=== PATIENT | female | born 1955 ===

== ENCOUNTER 2021-07-04 15:22 | Emergency (ER) | payer MEDICARE | END 2021-07-04 18:20 | disposition home or self-care (01) | LOC: LB.ED 15:22 | DX: K29.70 Gastritis, unspecified, without bleeding (principal) | CPT/HCPCS: 36415; 74176; 80053; 81001; 82150; 83690; 85025; 99282; 99284-25 ==

== ENCOUNTER 2022-09-04 10:44 | Emergency (ER) | payer MEDICARE ==
[2022-09-04] MEDS ORDERED: Sodium Chloride 0.9% 1,000 ML IV ONE (11:11)
[2022-09-04] MEDS ORDERED: cefTRIAXone 1 GM in Sodium Chloride 0.9% 50 ML IV ONE (11:13)
[2022-09-04 11:28] LABS: BASOPHILS ABSOLUTE AUTO 0.04 K/uL (0.02-0.10); BASOPHILS PERCENT AUTO 0.2 % (0.0-0.5); EOSINOPHILS ABSOLUTE AUTO 0.01 K/uL (0.04-0.40); EOSINOPHILS PERCENT AUTO 0.1 % (1.0-5.0); HEMATOCRIT 45.3 % (37.0-47.0); HEMOGLOBIN 15.6 g/dL (11.5-16.5); LYMPHOCYTES PERCENT AUTO 3.1 % (20.0-40.0); MEAN CORPUSCULAR HEMOGLOBIN 32.2 pg (27.0-32.0); MEAN CORPUSCULAR HGB CONC 34.4 g/dL (31.0-35.0); MEAN CORPUSCULAR VOLUME 94 fL (76-96); MEAN PLATELET VOLUME 10.3 fL (6.0-10.0); MONOCYTES ABSOLUTE AUTO 1.19 K/uL (0.20-0.80); MONOCYTES PERCENT AUTO 6.1 % (3.0-10.0); NEUTROPHILS PERCENT AUTO 90.5 % (45.0-70.0); PLATELET COUNT,PLT 261 K/uL (150-500); RED BLOOD CELL COUNT 4.84 M/uL (3.80-5.80); RED CELL DISTRIBUTION WIDTH 13.8 % (11.0-16.0); WHITE BLOOD CELL COUNT,WBC 19.4 K/uL (4.0-11.0)
[2022-09-04] MEDS ORDERED: cefTRIAXone 1 GM Vial ONE (11:30)
[2022-09-04 11:58] LABS: A/G RATIO 0.5 (0.8-2.0); ALBUMIN 2.6 g/dL (3.4-5.0); ANION GAP 21.8 mmol/L (5.0-15.0); BILIRUBIN TOTAL 0.8 mg/dL (0.0-1.0); BUN/CREATININE RATIO 23.6 (6-25); CREATININE 1.06 mg/dL (0.55-1.02); EST CRCL DRUG DOSING (CG) 37.5 mL/min; POTASSIUM,K 3.8 mmol/L (3.5-5.1); PROTEIN TOTAL,TP 7.4 g/dL (6.4-8.2)
[2022-09-04 12:09] LABS: APPEARANCE,URINE CLEAR (CLEAR); BILIRUBIN,URINE SMALL (NEGATIVE); COLOR,URINE YELLOW; GLUCOSE,URINE 500 mg/dL (NEGATIVE); KETONES,URINE 80 mg/dL (NEGATIVE); LEUKOCYTE ESTERASE,URINE NEGATIVE (NEGATIVE); NITRITE,URINE NEGATIVE (NEGATIVE); OCCULT BLOOD,URINE TRACE-INTACT (NEGATIVE); PROTEIN,URINE 30 mg/dL (NEGATIVE); UROBILINOGEN,URINE 0.2 E.U./dL (0.2-1.0)
[2022-09-04 12:19] LABS: RBC,URINE NOT SEEN /HPF; SQUAMOUS EPITHELIAL CELLS,UR OCCASIONAL /HPF; WBC,URINE 0-5 /HPF
[2022-09-04] MEDS ORDERED: Cephalexin 500 MG Cap ONE (13:00)
[2022-09-04] MEDS ORDERED: Doxycycline 100 MG Cap ONE (13:00)
== END 2022-09-04 13:45 | disposition home or self-care (01) ==
LOC: LB.ED 10:44
DX: L03.116 Cellulitis of left lower limb (principal); I10 Essential (primary) hypertension; K21.9 Gastro-esophageal reflux disease without esophagitis; E11.9 Type 2 diabetes mellitus without complications; E05.90 Thyrotoxicosis, unspecified without thyrotoxic crisis or storm; E66.9 Obesity, unspecified; F17.210 Nicotine dependence, cigarettes, uncomplicated; Z68.22 Body mass index [BMI] 22.0-22.9, adult; Z88.5 Allergy status to narcotic agent; Z88.0 Allergy status to penicillin; Z88.8 Allergy status to other drugs, medicaments and biological substances; Z88.2 Allergy status to sulfonamides; Z79.899 Other long term (current) drug therapy
CPT/HCPCS: 36415; 80053; 81001; 83605; 85025; 96361; 96365; 99283; A9270; J0696; J3490; J7030

== ENCOUNTER 2022-09-06 19:59 | Inpatient (IN) | payer MEDICARE ==
[2022-09-06] MEDS ORDERED: Ondansetron 4 MG/2 ML SDV IVPUSH ONE (20:31)
[2022-09-06] MEDS ORDERED: Morphine 2 MG/ML SYRINGE IVPUSH ONE (20:32)
[2022-09-06] MEDS ORDERED: Ondansetron 4 MG/2 ML SDV ONE (20:41)
[2022-09-06] MEDS ORDERED: Morphine 2 MG/ML SYRINGE ONE (20:41)
[2022-09-06] MEDS: Sodium Chloride 0.9% 10 ML Syringe FLUSH PRN ×2 (20:58→21:00)
[2022-09-06 21:08] LABS: HEMATOCRIT 44.4 % (37.0-47.0); HEMOGLOBIN 15.8 g/dL (11.5-16.5); MEAN CORPUSCULAR HEMOGLOBIN 32.2 pg (27.0-32.0); MEAN CORPUSCULAR HGB CONC 35.6 g/dL (31.0-35.0); MEAN PLATELET VOLUME 10.4 fL (6.0-10.0); RED BLOOD CELL COUNT 4.91 M/uL (3.80-5.80); RED CELL DISTRIBUTION WIDTH 13.7 % (11.0-16.0)
[2022-09-06 21:11] LABS: WHITE BLOOD CELL COUNT,WBC 20.3 K/uL (4.0-11.0)
[2022-09-06 21:18] LABS: ANION GAP 17.6 mmol/L (5.0-15.0); BUN/CREATININE RATIO 24.2 (6-25); CALCIUM 9.5 mg/dL (8.5-10.1); CARBON DIOXIDE,CO2 23.7 mmol/L (21.0-32.0); CREATININE 0.95 mg/dL (0.55-1.02); EST CRCL DRUG DOSING (CG) 46.07 mL/min; POTASSIUM,K 3.3 mmol/L (3.5-5.1)
[2022-09-06 21:19] LABS: C-REACTIVE PROTEIN 385.2 mg/L (0.0-3.0)
[2022-09-06] MEDS ORDERED: SEMAGLUTIDE 0.25 MG/0.4 ML SQ SCH (22:45)
[2022-09-06] MEDS: Cefepime 2 GM Vial IVPUSH SCH (23:42)
[2022-09-07] MEDS: Cefepime 2 GM Vial IVPUSH SCH ×3 (05:48→22:19)
[2022-09-07] MEDS: Ondansetron 4 MG/2 ML SDV IVPUSH PRN ×2 (06:28→12:46)
[2022-09-07] MEDS: Morphine 2 MG/ML SYRINGE IVPUSH PRN ×3 (06:30→21:52)
[2022-09-07 07:02] LABS: HEMATOCRIT 40.8 % (37.0-47.0); HEMOGLOBIN 14.5 g/dL (11.5-16.5); MEAN CORPUSCULAR HEMOGLOBIN 32.2 pg (27.0-32.0); MEAN CORPUSCULAR HGB CONC 35.5 g/dL (31.0-35.0); MEAN PLATELET VOLUME 9.9 fL (6.0-10.0); RED BLOOD CELL COUNT 4.5 M/uL (3.80-5.80); RED CELL DISTRIBUTION WIDTH 13.8 % (11.0-16.0)
[2022-09-07 07:12] LABS: WHITE BLOOD CELL COUNT,WBC 22.2 K/uL (4.0-11.0)
[2022-09-07] MEDS: Levothyroxine 100 MCG Tab PO SCH (07:12)
[2022-09-07 07:21] LABS: ANION GAP 20.1 mmol/L (5.0-15.0); BUN/CREATININE RATIO 29.3 (6-25); CARBON DIOXIDE,CO2 20.7 mmol/L (21.0-32.0); CREATININE 0.82 mg/dL (0.55-1.02); EST CRCL DRUG DOSING (CG) 53.37 mL/min; POTASSIUM,K 3.8 mmol/L (3.5-5.1)
[2022-09-07 07:22] LABS: C-REACTIVE PROTEIN 329.3 mg/L (0.0-3.0)
[2022-09-07] MEDS ORDERED: Lactated Ringers 1,000 ML IV SCH (07:45)
[2022-09-07] MEDS: Losartan 50 MG Tab PO SCH (08:09)
[2022-09-07] MEDS: Sertraline 100 MG Tab PO SCH (08:09)
[2022-09-07] MEDS: Omeprazole 20 MG Cap.CR PO SCH (08:10)
[2022-09-07] MEDS: Non-Formulary Medication 1 Each (Empagliflozin [Jardiance] 10 MG Tablet) PO SCH (08:13)
[2022-09-07] MEDS ORDERED: Omeprazole 20 MG Cap.CR ONE (08:13)
[2022-09-07] MEDS: SitaGLIPtin 25 MG Tab PO SCH (08:13)
[2022-09-07] MEDS: Lactated Ringers 1,000 ML IV SCH ×2 (10:35→11:05)
[2022-09-07 16:13] LABS: HEMATOCRIT 41.1 % (37.0-47.0); HEMOGLOBIN 14.6 g/dL (11.5-16.5); MEAN CORPUSCULAR HEMOGLOBIN 32.2 pg (27.0-32.0); MEAN CORPUSCULAR HGB CONC 35.5 g/dL (31.0-35.0); RED BLOOD CELL COUNT 4.54 M/uL (3.80-5.80)
[2022-09-07 16:15] LABS: WHITE BLOOD CELL COUNT,WBC 23.3 K/uL (4.0-11.0)
[2022-09-07] MEDS: cefTRIAXone 1 GM in Sodium Chloride 0.9% 50 ML IV SCH (17:59)
[2022-09-07] MEDS: Piperacillin/Tazobactam 3.375 GM in Sodium Chloride 0.9% 100 ML IV SCH ×2 (18:02→22:20)
[2022-09-08] MEDS: Piperacillin/Tazobactam 3.375 GM in Sodium Chloride 0.9% 100 ML IV SCH ×4 (04:40→22:20)
[2022-09-08] MEDS: cefTRIAXone 1 GM in Sodium Chloride 0.9% 50 ML IV SCH (04:44)
[2022-09-08] MEDS: Cefepime 2 GM Vial IVPUSH SCH ×2 (05:03→15:04)
[2022-09-08] MEDS: Morphine 2 MG/ML SYRINGE IVPUSH PRN (05:36)
[2022-09-08] MEDS: Sodium Chloride 0.9% 1,000 ML IV SCH ×2 (07:31→22:18)
[2022-09-08] MEDS: Sertraline 100 MG Tab PO SCH (07:41)
[2022-09-08] MEDS: Losartan 50 MG Tab PO SCH (07:41)
[2022-09-08] MEDS: Levothyroxine 100 MCG Tab PO SCH (07:41)
[2022-09-08] MEDS: Omeprazole 20 MG Cap.CR PO SCH (07:42)
[2022-09-08 08:25] LABS: HEMATOCRIT 39.4 % (37.0-47.0); HEMOGLOBIN 13.9 g/dL (11.5-16.5); MEAN CORPUSCULAR HEMOGLOBIN 32.2 pg (27.0-32.0); MEAN CORPUSCULAR HGB CONC 35.3 g/dL (31.0-35.0); MEAN PLATELET VOLUME 10.3 fL (6.0-10.0); RED BLOOD CELL COUNT 4.32 M/uL (3.80-5.80); RED CELL DISTRIBUTION WIDTH 13.8 % (11.0-16.0)
[2022-09-08] MEDS: SitaGLIPtin 25 MG Tab PO SCH (09:56)
[2022-09-08] MEDS: Non-Formulary Medication 1 Each (Empagliflozin [Jardiance] 10 MG Tablet) PO SCH (09:56)
[2022-09-08] MEDS: Lactobacillus Acidophilus/Lactobacillus Sporogenes (Probiotic) Tab PO SCH ×2 (12:44→19:24)
[2022-09-08] MEDS ORDERED: Morphine 4 MG/ML VIAL IVPUSH ONE ×2 (12:45→14:00)
[2022-09-08] MEDS: Ondansetron 4 MG/2 ML SDV IVPUSH PRN (12:47)
[2022-09-08] MEDS ORDERED: LORazepam 2 MG/ML SDV IVPUSH ONE (12:51)
[2022-09-09] MEDS: Piperacillin/Tazobactam 3.375 GM in Sodium Chloride 0.9% 100 ML IV SCH ×4 (04:42→23:12)
[2022-09-09 07:59] LABS: HEMATOCRIT 37.4 % (37.0-47.0); MEAN CORPUSCULAR HEMOGLOBIN 31.7 pg (27.0-32.0); MEAN CORPUSCULAR HGB CONC 34.8 g/dL (31.0-35.0); RED BLOOD CELL COUNT 4.1 M/uL (3.80-5.80); RED CELL DISTRIBUTION WIDTH 14.2 % (11.0-16.0)
[2022-09-09] MEDS: Sertraline 100 MG Tab PO SCH (08:06)
[2022-09-09] MEDS: Lactobacillus Acidophilus/Lactobacillus Sporogenes (Probiotic) Tab PO SCH ×2 (08:08→19:09)
[2022-09-09 08:09] LABS: WHITE BLOOD CELL COUNT,WBC 21.9 K/uL (4.0-11.0)
[2022-09-09] MEDS: Levothyroxine 100 MCG Tab PO SCH (08:09)
[2022-09-09] MEDS: Losartan 50 MG Tab PO SCH (08:09)
[2022-09-09] MEDS: Omeprazole 20 MG Cap.CR PO SCH (08:09)
[2022-09-09] MEDS: Non-Formulary Medication 1 Each (Empagliflozin [Jardiance] 10 MG Tablet) PO SCH (08:10)
[2022-09-09] MEDS: SitaGLIPtin 25 MG Tab PO SCH (08:11)
[2022-09-09] MEDS ORDERED: Bisacodyl 10 MG Supp RECTAL ONE (09:42)
[2022-09-09] MEDS ORDERED: Docusate Sodium 100 MG Cap PO SCH (09:45)
[2022-09-09] MEDS ORDERED: LORazepam 2 MG/ML SDV IVPUSH ONE (14:48)
[2022-09-09] MEDS ORDERED: Morphine 4 MG/ML VIAL IVPUSH ONE ×2 (14:48→17:28)
[2022-09-09] MEDS ORDERED: Morphine 4 MG/ML VIAL ONE (17:24)
[2022-09-09] MEDS ORDERED: fentaNYL 100 MCG/2 ML SDV ONE (17:33)
[2022-09-09] MEDS ORDERED: fentaNYL 100 MCG/2 ML SDV IVPUSH ONE ×2 (17:38→17:45)
[2022-09-09] MEDS: Sodium Chloride 0.9% 1,000 ML IV SCH (18:05)
[2022-09-09] MEDS: Polyethylene Glycol 3350 Powder 17 GM Packet PO SCH (19:09)
[2022-09-09] MEDS: Sennosides/Docusate Sodium 50-8.6 MG Tab PO SCH (19:10)
[2022-09-10] MEDS: Piperacillin/Tazobactam 3.375 GM in Sodium Chloride 0.9% 100 ML IV SCH ×3 (05:15→16:56)
[2022-09-10 07:37] LABS: HEMATOCRIT 39.1 % (37.0-47.0); HEMOGLOBIN 13.6 g/dL (11.5-16.5); MEAN CORPUSCULAR HGB CONC 34.8 g/dL (31.0-35.0); MEAN PLATELET VOLUME 10.2 fL (6.0-10.0); RED BLOOD CELL COUNT 4.25 M/uL (3.80-5.80); RED CELL DISTRIBUTION WIDTH 14.5 % (11.0-16.0)
[2022-09-10 07:40] LABS: WHITE BLOOD CELL COUNT,WBC 20.2 K/uL (4.0-11.0)
[2022-09-10] MEDS: Sertraline 100 MG Tab PO SCH (08:00)
[2022-09-10] MEDS: Levothyroxine 100 MCG Tab PO SCH (08:03)
[2022-09-10] MEDS: Lactobacillus Acidophilus/Lactobacillus Sporogenes (Probiotic) Tab PO SCH (08:03)
[2022-09-10] MEDS: Non-Formulary Medication 1 Each (Empagliflozin [Jardiance] 10 MG Tablet) PO SCH (08:04)
[2022-09-10] MEDS: Losartan 50 MG Tab PO SCH (08:04)
[2022-09-10] MEDS: Polyethylene Glycol 3350 Powder 17 GM Packet PO SCH (08:07)
[2022-09-10] MEDS: Omeprazole 20 MG Cap.CR PO SCH (08:07)
[2022-09-10] MEDS: Sennosides/Docusate Sodium 50-8.6 MG Tab PO SCH (08:08)
[2022-09-10] MEDS ORDERED: JANUVIA 100 MG PO SCH (08:45)
[2022-09-10 12:45] LABS: ANION GAP 18.4 mmol/L (5.0-15.0); CALCIUM 8.5 mg/dL (8.5-10.1); CARBON DIOXIDE,CO2 20.8 mmol/L (21.0-32.0); CREATININE 0.7 mg/dL (0.55-1.02); EST CRCL DRUG DOSING (CG) 62.53 mL/min; POTASSIUM,K 3.2 mmol/L (3.5-5.1)
[2022-09-10] MEDS ORDERED: LORazepam 2 MG/ML SDV IVPUSH ONE (13:06)
[2022-09-10] MEDS ORDERED: Morphine 4 MG/ML VIAL IVPUSH ONE (13:06)
[2022-09-10] MEDS: Ondansetron 4 MG/2 ML SDV IVPUSH PRN (13:20)
[2022-09-10] MEDS: fentaNYL 100 MCG/2 ML SDV IVPUSH ONE ×2 (13:20→14:47)
[2022-09-10] MEDS ORDERED: fentaNYL 100 MCG/2 ML SDV IM ONE (14:00)
[2022-09-10] MEDS: Sodium Chloride 0.9% 1,000 ML IV SCH (18:26)
[2022-09-10] MEDS: Morphine 2 MG/ML SYRINGE IVPUSH PRN (18:46)
[2022-09-11] MEDS ORDERED: Jardiance 10 MG Tablet **OWN MED PO SCH (08:00)
== END 2022-09-10 18:58 | DRG 603 ==
LOC: LB.ED 19:59 → LB.MS 22:15 → UNDOADMIN 22:15 → LB.MS 22:21
PROVIDERS: ADMIT Surgery; ATTEND Surgery
DX: L03.116 Cellulitis of left lower limb (principal); E11.9 Type 2 diabetes mellitus without complications; I10 Essential (primary) hypertension; G35 Multiple sclerosis; E66.9 Obesity, unspecified; K21.9 Gastro-esophageal reflux disease without esophagitis; F17.210 Nicotine dependence, cigarettes, uncomplicated; E78.00 Pure hypercholesterolemia, unspecified; F32.A Depression, unspecified; E03.9 Hypothyroidism, unspecified; Z96.649 Presence of unspecified artificial hip joint; Z88.5 Allergy status to narcotic agent; Z88.0 Allergy status to penicillin; Z88.2 Allergy status to sulfonamides; Z88.8 Allergy status to other drugs, medicaments and biological substances; Z79.890 Hormone replacement therapy; Z79.899 Other long term (current) drug therapy; Z98.890 Other specified postprocedural states; Z68.28 Body mass index [BMI] 28.0-28.9, adult
CPT/HCPCS: 36415; 73700; 80048; 83605; 85027; 86140; 87040; 96365; 96375; 99284; J2270; J2405; J3370; J3490 ×2; J7050; 80202; 82947; 86141; 87070; 99222; 99232; 99239; A0425; A0429; A9270-GY; J0692; J0696; J2060; J2543; J3010; J7030; J7120

== ENCOUNTER 2022-09-25 10:57 | Inpatient (IN) | payer MEDICARE ==
[2022-09-25] MEDS ORDERED: Glucagon,Human Recombinant 1 MG Vial IM PRN ×2 (12:57→13:01)
[2022-09-25] MEDS ORDERED: 50% Dextrose in Water 50 ML Syringe IVPUSH PRN ×2 (12:57→13:01)
[2022-09-25] MEDS ORDERED: Non-Formulary Medication 1 Each (Cholecalciferol (Vitamin D3) [Vitamin D3] 1,250 MCG Table PO SCH (13:00)
[2022-09-25] MEDS ORDERED: Ketorolac 10 MG Tab PO PRN (13:01)
[2022-09-25] MEDS ORDERED: Tuberculin, PPD 5 Units/0.1 ML 1 ML MDV IDERM ONE (17:43)
[2022-09-25] MEDS: Insulin Aspart 100 Units/ML 3 ML Pen SUBCUT SCH (17:48)
[2022-09-25] MEDS: Insulin Glargine,Human Rec. Analog 100 Units/ML 3 ML Pen SUBCUT SCH (20:24)
[2022-09-25] MEDS: traMADol 50 MG Tab PO PRN (21:30)
[2022-09-26] MEDS: Cholecalciferol (Vitamin D3) 2,000 Unit Cap PO SCH (07:36)
[2022-09-26] MEDS: Sertraline 50 MG Tab PO SCH (07:37)
[2022-09-26] MEDS: Levothyroxine 100 MCG Tab PO SCH (07:37)
[2022-09-26] MEDS: Rosuvastatin 20 MG Tab PO SCH (07:37)
[2022-09-26] MEDS: Losartan 50 MG Tab PO SCH (07:37)
[2022-09-26] MEDS: Omeprazole 20 MG Cap.CR PO SCH (07:37)
[2022-09-26] MEDS: Insulin Aspart 100 Units/ML 3 ML Pen SUBCUT SCH ×3 (07:55→17:14)
[2022-09-26] MEDS ORDERED: Sertraline 100 MG Tab PO SCH (08:00)
[2022-09-26] MEDS: Benztropine 0.5 MG Tab PO SCH ×2 (10:52→13:23)
[2022-09-26] MEDS ORDERED: Naloxone 2 MG/2 ML Syringe IVPUSH PRN (13:05)
[2022-09-26] MEDS ORDERED: HYDROmorphone 2 MG/ML Syringe IVPUSH PRN (13:05)
[2022-09-26] MEDS ORDERED: LORazepam 2 MG/ML SDV IVPUSH SCH (13:45)
[2022-09-26] MEDS: Insulin Glargine,Human Rec. Analog 100 Units/ML 3 ML Pen SUBCUT SCH (20:13)
[2022-09-26] MEDS: traMADol 50 MG Tab PO PRN (22:52)
[2022-09-27] MEDS: Levothyroxine 100 MCG Tab PO SCH (07:15)
[2022-09-27] MEDS: Losartan 50 MG Tab PO SCH (08:19)
[2022-09-27] MEDS: Benztropine 0.5 MG Tab PO SCH (08:19)
[2022-09-27] MEDS: Rosuvastatin 20 MG Tab PO SCH (08:19)
[2022-09-27] MEDS: Insulin Aspart 100 Units/ML 3 ML Pen SUBCUT SCH ×3 (08:20→17:44)
[2022-09-27] MEDS: Sertraline 50 MG Tab PO SCH (08:22)
[2022-09-27] MEDS: Cholecalciferol (Vitamin D3) 2,000 Unit Cap PO SCH (08:22)
[2022-09-27] MEDS: Omeprazole 20 MG Cap.CR PO SCH (08:22)
[2022-09-27] MEDS: traMADol 50 MG Tab PO PRN (18:52)
[2022-09-27] MEDS: Insulin Glargine,Human Rec. Analog 100 Units/ML 3 ML Pen SUBCUT SCH (20:20)
[2022-09-28] MEDS: Levothyroxine 100 MCG Tab PO SCH (07:43)
[2022-09-28] MEDS: Benztropine 0.5 MG Tab PO SCH (07:43)
[2022-09-28] MEDS: Losartan 50 MG Tab PO SCH (07:44)
[2022-09-28] MEDS: Rosuvastatin 20 MG Tab PO SCH (07:44)
[2022-09-28] MEDS: Sertraline 50 MG Tab PO SCH (07:45)
[2022-09-28] MEDS: Cholecalciferol (Vitamin D3) 2,000 Unit Cap PO SCH (07:45)
[2022-09-28] MEDS: Omeprazole 20 MG Cap.CR PO SCH (07:45)
[2022-09-28] MEDS: Insulin Aspart 100 Units/ML 3 ML Pen SUBCUT SCH ×3 (07:48→17:12)
[2022-09-28] MEDS: LORazepam 2 MG/ML SDV IM PRN (18:56)
[2022-09-28] MEDS: Insulin Glargine,Human Rec. Analog 100 Units/ML 3 ML Pen SUBCUT SCH (20:02)
[2022-09-29] MEDS: Levothyroxine 100 MCG Tab PO SCH (08:23)
[2022-09-29] MEDS: Cholecalciferol (Vitamin D3) 2,000 Unit Cap PO SCH (08:23)
[2022-09-29] MEDS: Rosuvastatin 20 MG Tab PO SCH (08:23)
[2022-09-29] MEDS: Sertraline 50 MG Tab PO SCH (08:23)
[2022-09-29] MEDS: Omeprazole 20 MG Cap.CR PO SCH (08:23)
[2022-09-29] MEDS: Benztropine 0.5 MG Tab PO SCH (08:25)
[2022-09-29] MEDS: Insulin Aspart 100 Units/ML 3 ML Pen SUBCUT SCH ×3 (08:29→17:22)
[2022-09-29] MEDS: Losartan 50 MG Tab PO SCH (08:29)
[2022-09-29] MEDS: LORazepam 2 MG/ML SDV IM PRN (12:39)
[2022-09-29] MEDS: HYDROmorphone 2 MG/ML Syringe SUBCUT PRN (12:56)
[2022-09-29] MEDS: fentaNYL 100 MCG/2 ML SDV IM PRN (13:20)
[2022-09-29] MEDS: Insulin Glargine,Human Rec. Analog 100 Units/ML 3 ML Pen SUBCUT SCH (19:47)
[2022-09-30] MEDS: Levothyroxine 100 MCG Tab PO SCH (07:15)
[2022-09-30] MEDS: Benztropine 0.5 MG Tab PO SCH (08:10)
[2022-09-30] MEDS: Losartan 50 MG Tab PO SCH (08:10)
[2022-09-30] MEDS: Cholecalciferol (Vitamin D3) 2,000 Unit Cap PO SCH (08:11)
[2022-09-30] MEDS: Omeprazole 20 MG Cap.CR PO SCH (08:11)
[2022-09-30] MEDS: Rosuvastatin 20 MG Tab PO SCH (08:11)
[2022-09-30] MEDS: Insulin Aspart 100 Units/ML 3 ML Pen SUBCUT SCH ×3 (08:11→16:59)
[2022-09-30] MEDS: Sertraline 50 MG Tab PO SCH (08:11)
[2022-09-30] MEDS: traMADol 50 MG Tab PO PRN (11:18)
[2022-09-30] MEDS: Insulin Glargine,Human Rec. Analog 100 Units/ML 3 ML Pen SUBCUT SCH (20:59)
[2022-10-01] MEDS: Levothyroxine 100 MCG Tab PO SCH (07:24)
[2022-10-01] MEDS: Losartan 50 MG Tab PO SCH (08:22)
[2022-10-01] MEDS: Benztropine 0.5 MG Tab PO SCH (08:22)
[2022-10-01] MEDS: Rosuvastatin 20 MG Tab PO SCH (08:23)
[2022-10-01] MEDS: Omeprazole 20 MG Cap.CR PO SCH (08:23)
[2022-10-01] MEDS: Insulin Aspart 100 Units/ML 3 ML Pen SUBCUT SCH ×3 (08:23→20:21)
[2022-10-01] MEDS: Cholecalciferol (Vitamin D3) 2,000 Unit Cap PO SCH (08:23)
[2022-10-01] MEDS: Sertraline 50 MG Tab PO SCH (08:23)
[2022-10-01] MEDS: HYDROmorphone 2 MG/ML Syringe SUBCUT PRN (10:10)
[2022-10-01] MEDS: LORazepam 2 MG/ML SDV IM PRN (10:10)
[2022-10-01 12:47] LABS: BASOPHILS ABSOLUTE AUTO 0.03 K/uL (0.02-0.10); BASOPHILS PERCENT AUTO 0.5 % (0.0-0.5); EOSINOPHILS ABSOLUTE AUTO 0.24 K/uL (0.04-0.40); EOSINOPHILS PERCENT AUTO 3.6 % (1.0-5.0); HEMATOCRIT 38.7 % (37.0-47.0); HEMOGLOBIN 12.7 g/dL (11.5-16.5); LYMPHOCYTES ABSOLUTE AUTO 1.74 K/uL (1.50-4.00); LYMPHOCYTES PERCENT AUTO 26.4 % (20.0-40.0); MEAN CORPUSCULAR HGB CONC 32.8 g/dL (31.0-35.0); MEAN CORPUSCULAR VOLUME 98 fL (76-96); MEAN PLATELET VOLUME 9.4 fL (6.0-10.0); MONOCYTES ABSOLUTE AUTO 0.43 K/uL (0.20-0.80); MONOCYTES PERCENT AUTO 6.5 % (3.0-10.0); NEUTROPHILS ABSOLUTE AUTO 4.14 K/uL (2.00-7.50); PLATELET COUNT,PLT 297 K/uL (150-500); RED BLOOD CELL COUNT 3.97 M/uL (3.80-5.80); RED CELL DISTRIBUTION WIDTH 15.8 % (11.0-16.0); WHITE BLOOD CELL COUNT,WBC 6.6 K/uL (4.0-11.0)
[2022-10-01 13:05] LABS: ALBUMIN 2.4 g/dL (3.4-5.0); ANION GAP 9.6 mmol/L (5.0-15.0); BILIRUBIN TOTAL 0.3 mg/dL (0.0-1.0); CALCIUM 8.5 mg/dL (8.5-10.1); CARBON DIOXIDE,CO2 32.3 mmol/L (21.0-32.0); CREATININE 0.61 mg/dL (0.55-1.02); EST CRCL DRUG DOSING (CG) 65.16 mL/min; POTASSIUM,K 3.9 mmol/L (3.5-5.1); PROTEIN TOTAL,TP 6.8 g/dL (6.4-8.2)
[2022-10-01 13:06] LABS: A/G RATIO 0.6 (0.8-2.0)
[2022-10-01] MEDS: Furosemide 20 MG Tab PO SCH (17:13)
[2022-10-01] MEDS: Insulin Glargine,Human Rec. Analog 100 Units/ML 3 ML Pen SUBCUT SCH (20:25)
[2022-10-02] MEDS: Furosemide 20 MG Tab PO SCH (07:33)
[2022-10-02] MEDS: Rosuvastatin 20 MG Tab PO SCH (07:33)
[2022-10-02] MEDS: Levothyroxine 100 MCG Tab PO SCH (07:33)
[2022-10-02] MEDS: Omeprazole 20 MG Cap.CR PO SCH (07:34)
[2022-10-02] MEDS: Benztropine 0.5 MG Tab PO SCH (07:35)
[2022-10-02] MEDS: Cholecalciferol (Vitamin D3) 2,000 Unit Cap PO SCH (07:35)
[2022-10-02] MEDS: Losartan 50 MG Tab PO SCH (07:35)
[2022-10-02] MEDS: Sertraline 50 MG Tab PO SCH (07:35)
[2022-10-02] MEDS: Insulin Aspart 100 Units/ML 3 ML Pen SUBCUT SCH ×3 (07:36→17:38)
[2022-10-02] MEDS: Insulin Glargine,Human Rec. Analog 100 Units/ML 3 ML Pen SUBCUT SCH (20:13)
[2022-10-02] MEDS: traMADol 50 MG Tab PO PRN (21:14)
[2022-10-02] MEDS: Docusate Sodium 100 MG Cap PO PRN (21:14)
[2022-10-03] MEDS: Furosemide 20 MG Tab PO SCH (07:41)
[2022-10-03] MEDS: Insulin Aspart 100 Units/ML 3 ML Pen SUBCUT SCH ×3 (07:41→17:06)
[2022-10-03] MEDS: Benztropine 0.5 MG Tab PO SCH (07:42)
[2022-10-03] MEDS: Sertraline 50 MG Tab PO SCH (07:42)
[2022-10-03] MEDS: Rosuvastatin 20 MG Tab PO SCH (07:43)
[2022-10-03] MEDS: Losartan 50 MG Tab PO SCH (07:43)
[2022-10-03] MEDS: Omeprazole 20 MG Cap.CR PO SCH (07:43)
[2022-10-03] MEDS: Levothyroxine 100 MCG Tab PO SCH (07:44)
[2022-10-03] MEDS: Cholecalciferol (Vitamin D3) 2,000 Unit Cap PO SCH (07:44)
[2022-10-03] MEDS: LORazepam 2 MG/ML SDV IM PRN (13:17)
[2022-10-03] MEDS: HYDROmorphone 2 MG/ML Syringe SUBCUT PRN (13:18)
[2022-10-03] MEDS: Insulin Glargine,Human Rec. Analog 100 Units/ML 3 ML Pen SUBCUT SCH (19:18)
[2022-10-04] MEDS: Losartan 50 MG Tab PO SCH (07:44)
[2022-10-04] MEDS: Benztropine 0.5 MG Tab PO SCH (07:44)
[2022-10-04] MEDS: Levothyroxine 100 MCG Tab PO SCH (07:44)
[2022-10-04] MEDS: Cholecalciferol (Vitamin D3) 2,000 Unit Cap PO SCH (07:45)
[2022-10-04] MEDS: Omeprazole 20 MG Cap.CR PO SCH (07:45)
[2022-10-04] MEDS: Furosemide 20 MG Tab PO SCH (07:45)
[2022-10-04] MEDS: Sertraline 50 MG Tab PO SCH (07:45)
[2022-10-04] MEDS: Insulin Aspart 100 Units/ML 3 ML Pen SUBCUT SCH ×3 (07:46→17:10)
[2022-10-04] MEDS: Rosuvastatin 20 MG Tab PO SCH (07:46)
[2022-10-04] MEDS: Docusate Sodium 100 MG Cap PO PRN (19:45)
[2022-10-04] MEDS: Insulin Glargine,Human Rec. Analog 100 Units/ML 3 ML Pen SUBCUT SCH (19:45)
[2022-10-05] MEDS: Omeprazole 20 MG Cap.CR PO SCH (08:00)
[2022-10-05] MEDS: Levothyroxine 100 MCG Tab PO SCH (08:00)
[2022-10-05] MEDS: Cholecalciferol (Vitamin D3) 2,000 Unit Cap PO SCH (08:00)
[2022-10-05] MEDS: Furosemide 20 MG Tab PO SCH (08:00)
[2022-10-05] MEDS: Sertraline 50 MG Tab PO SCH (08:01)
[2022-10-05] MEDS: Rosuvastatin 20 MG Tab PO SCH (08:01)
[2022-10-05] MEDS: Losartan 50 MG Tab PO SCH (08:01)
[2022-10-05] MEDS: Benztropine 0.5 MG Tab PO SCH (08:01)
[2022-10-05] MEDS: Insulin Aspart 100 Units/ML 3 ML Pen SUBCUT SCH ×3 (08:02→17:05)
[2022-10-05] MEDS: traMADol 50 MG Tab PO PRN ×2 (08:55→22:30)
[2022-10-05] MEDS: Insulin Glargine,Human Rec. Analog 100 Units/ML 3 ML Pen SUBCUT SCH (19:45)
[2022-10-06] MEDS: Omeprazole 20 MG Cap.CR PO SCH (08:09)
[2022-10-06] MEDS: Furosemide 20 MG Tab PO SCH (08:10)
[2022-10-06] MEDS: Cholecalciferol (Vitamin D3) 2,000 Unit Cap PO SCH (08:10)
[2022-10-06] MEDS: Levothyroxine 100 MCG Tab PO SCH (08:11)
[2022-10-06] MEDS: Rosuvastatin 20 MG Tab PO SCH (08:12)
[2022-10-06] MEDS: Losartan 50 MG Tab PO SCH (08:12)
[2022-10-06] MEDS: Sertraline 50 MG Tab PO SCH (08:13)
[2022-10-06] MEDS: Insulin Aspart 100 Units/ML 3 ML Pen SUBCUT SCH ×3 (08:13→17:09)
[2022-10-06] MEDS: Benztropine 0.5 MG Tab PO SCH (08:14)
[2022-10-06] MEDS: HYDROmorphone 2 MG/ML Syringe SUBCUT PRN (14:08)
[2022-10-06] MEDS: LORazepam 2 MG/ML SDV IM PRN (14:09)
[2022-10-06] MEDS: fentaNYL 100 MCG/2 ML SDV IM PRN ×2 (14:45→17:01)
[2022-10-06] MEDS: Insulin Glargine,Human Rec. Analog 100 Units/ML 3 ML Pen SUBCUT SCH (20:35)
[2022-10-07] MEDS: Levothyroxine 100 MCG Tab PO SCH (08:10)
[2022-10-07] MEDS: Sertraline 50 MG Tab PO SCH (08:10)
[2022-10-07] MEDS: Cholecalciferol (Vitamin D3) 2,000 Unit Cap PO SCH (08:11)
[2022-10-07] MEDS: Rosuvastatin 20 MG Tab PO SCH (08:11)
[2022-10-07] MEDS: Omeprazole 20 MG Cap.CR PO SCH (08:11)
[2022-10-07] MEDS: Furosemide 20 MG Tab PO SCH (08:11)
[2022-10-07] MEDS: Insulin Aspart 100 Units/ML 3 ML Pen SUBCUT SCH ×3 (08:12→17:01)
[2022-10-07] MEDS: Benztropine 0.5 MG Tab PO SCH (08:12)
[2022-10-07] MEDS: Losartan 50 MG Tab PO SCH (08:12)
[2022-10-07] MEDS: Insulin Glargine,Human Rec. Analog 100 Units/ML 3 ML Pen SUBCUT SCH (20:59)
[2022-10-08] MEDS: Sertraline 50 MG Tab PO SCH (07:37)
[2022-10-08] MEDS: Levothyroxine 100 MCG Tab PO SCH (07:37)
[2022-10-08] MEDS: Cholecalciferol (Vitamin D3) 2,000 Unit Cap PO SCH (07:38)
[2022-10-08] MEDS: Losartan 50 MG Tab PO SCH (07:38)
[2022-10-08] MEDS: Rosuvastatin 20 MG Tab PO SCH (07:39)
[2022-10-08] MEDS: Furosemide 20 MG Tab PO SCH (07:39)
[2022-10-08] MEDS: Omeprazole 20 MG Cap.CR PO SCH (07:39)
[2022-10-08] MEDS: Benztropine 0.5 MG Tab PO SCH (07:41)
[2022-10-08] MEDS: Insulin Aspart 100 Units/ML 3 ML Pen SUBCUT SCH ×3 (07:41→17:10)
[2022-10-08] MEDS ORDERED: Lidocaine 4% Top Soln 50 ML Bottle TOP PRN (09:39)
[2022-10-08] MEDS ORDERED: fentaNYL 100 MCG/2 ML SDV ONE (13:35)
[2022-10-08] MEDS ORDERED: fentaNYL 100 MCG/2 ML SDV IM PRN (13:49)
[2022-10-08] MEDS: Insulin Glargine,Human Rec. Analog 100 Units/ML 3 ML Pen SUBCUT SCH (19:10)
[2022-10-09] MEDS: Rosuvastatin 20 MG Tab PO SCH (07:55)
[2022-10-09] MEDS: Omeprazole 20 MG Cap.CR PO SCH (07:56)
[2022-10-09] MEDS: Losartan 50 MG Tab PO SCH (07:56)
[2022-10-09] MEDS: Cholecalciferol (Vitamin D3) 2,000 Unit Cap PO SCH (07:56)
[2022-10-09] MEDS: Levothyroxine 100 MCG Tab PO SCH (07:57)
[2022-10-09] MEDS: Insulin Aspart 100 Units/ML 3 ML Pen SUBCUT SCH ×3 (07:58→17:39)
[2022-10-09] MEDS: Furosemide 20 MG Tab PO SCH (07:58)
[2022-10-09] MEDS: Benztropine 0.5 MG Tab PO SCH (07:59)
[2022-10-09] MEDS: Sertraline 50 MG Tab PO SCH (08:00)
[2022-10-09] MEDS: Insulin Glargine,Human Rec. Analog 100 Units/ML 3 ML Pen SUBCUT SCH (19:52)
[2022-10-10] MEDS: Furosemide 20 MG Tab PO SCH (08:18)
[2022-10-10] MEDS: Losartan 50 MG Tab PO SCH (08:19)
[2022-10-10] MEDS: Omeprazole 20 MG Cap.CR PO SCH (08:19)
[2022-10-10] MEDS: Rosuvastatin 20 MG Tab PO SCH (08:19)
[2022-10-10] MEDS: Levothyroxine 100 MCG Tab PO SCH (08:20)
[2022-10-10] MEDS: Cholecalciferol (Vitamin D3) 2,000 Unit Cap PO SCH (08:21)
[2022-10-10] MEDS: Benztropine 0.5 MG Tab PO SCH (08:21)
[2022-10-10] MEDS: Insulin Aspart 100 Units/ML 3 ML Pen SUBCUT SCH ×3 (08:22→17:14)
[2022-10-10] MEDS: Sertraline 50 MG Tab PO SCH (08:24)
[2022-10-10] MEDS: Acetaminophen 325 MG Tab PO PRN (18:15)
[2022-10-10] MEDS: Insulin Glargine,Human Rec. Analog 100 Units/ML 3 ML Pen SUBCUT SCH (20:24)
[2022-10-11] MEDS: Acetaminophen 325 MG Tab PO PRN ×2 (03:18→21:18)
[2022-10-11] MEDS: Levothyroxine 100 MCG Tab PO SCH (07:00)
[2022-10-11] MEDS: Omeprazole 20 MG Cap.CR PO SCH (07:29)
[2022-10-11] MEDS: Furosemide 20 MG Tab PO SCH (07:30)
[2022-10-11] MEDS: Cholecalciferol (Vitamin D3) 2,000 Unit Cap PO SCH (07:30)
[2022-10-11] MEDS: Rosuvastatin 20 MG Tab PO SCH (07:31)
[2022-10-11] MEDS: Losartan 50 MG Tab PO SCH (07:32)
[2022-10-11] MEDS: Sertraline 50 MG Tab PO SCH (07:33)
[2022-10-11] MEDS: Benztropine 0.5 MG Tab PO SCH (07:33)
[2022-10-11] MEDS: Insulin Aspart 100 Units/ML 3 ML Pen SUBCUT SCH ×3 (07:46→17:14)
[2022-10-11] MEDS: Insulin Glargine,Human Rec. Analog 100 Units/ML 3 ML Pen SUBCUT SCH (20:55)
[2022-10-12] MEDS: Rosuvastatin 20 MG Tab PO SCH (08:27)
[2022-10-12] MEDS: Losartan 50 MG Tab PO SCH (08:27)
[2022-10-12] MEDS: Omeprazole 20 MG Cap.CR PO SCH (08:28)
[2022-10-12] MEDS: Cholecalciferol (Vitamin D3) 2,000 Unit Cap PO SCH (08:28)
[2022-10-12] MEDS: Furosemide 20 MG Tab PO SCH (08:29)
[2022-10-12] MEDS: Levothyroxine 100 MCG Tab PO SCH (08:29)
[2022-10-12] MEDS: Benztropine 0.5 MG Tab PO SCH (08:30)
[2022-10-12] MEDS: Sertraline 50 MG Tab PO SCH (08:30)
[2022-10-12] MEDS: Insulin Aspart 100 Units/ML 3 ML Pen SUBCUT SCH ×3 (08:30→17:03)
[2022-10-13] MEDS: Levothyroxine 100 MCG Tab PO SCH (07:42)
[2022-10-13] MEDS: Benztropine 0.5 MG Tab PO SCH (07:42)
[2022-10-13] MEDS: Losartan 50 MG Tab PO SCH (07:42)
[2022-10-13] MEDS: Furosemide 20 MG Tab PO SCH (07:43)
[2022-10-13] MEDS: Sertraline 50 MG Tab PO SCH (07:43)
[2022-10-13] MEDS: Omeprazole 20 MG Cap.CR PO SCH (07:43)
[2022-10-13] MEDS: Insulin Aspart 100 Units/ML 3 ML Pen SUBCUT SCH ×3 (07:43→18:26)
[2022-10-13] MEDS: Cholecalciferol (Vitamin D3) 2,000 Unit Cap PO SCH (07:43)
[2022-10-13] MEDS: Rosuvastatin 20 MG Tab PO SCH (07:43)
[2022-10-13] MEDS ORDERED: Acetaminophen/HYDROcodone 325-5 MG Tab PO PRN (09:49)
[2022-10-13] MEDS: HYDROmorphone 2 MG/ML Syringe SUBCUT PRN (14:00)
[2022-10-13] MEDS: Sulfamethoxazole/Trimethoprim 800-160 MG Tab PO SCH ×2 (14:46→20:28)
[2022-10-13] MEDS: Insulin Glargine,Human Rec. Analog 100 Units/ML 3 ML Pen SUBCUT SCH (20:28)
[2022-10-14] MEDS: Levothyroxine 100 MCG Tab PO SCH (07:56)
[2022-10-14] MEDS: Cholecalciferol (Vitamin D3) 2,000 Unit Cap PO SCH (07:57)
[2022-10-14] MEDS: Sulfamethoxazole/Trimethoprim 800-160 MG Tab PO SCH ×2 (07:58→20:37)
[2022-10-14] MEDS: Furosemide 20 MG Tab PO SCH (07:58)
[2022-10-14] MEDS: Omeprazole 20 MG Cap.CR PO SCH (07:58)
[2022-10-14] MEDS: Rosuvastatin 20 MG Tab PO SCH (07:59)
[2022-10-14] MEDS: Sertraline 50 MG Tab PO SCH (07:59)
[2022-10-14] MEDS: Benztropine 0.5 MG Tab PO SCH (08:00)
[2022-10-14] MEDS: Insulin Aspart 100 Units/ML 3 ML Pen SUBCUT SCH ×3 (08:01→18:00)
[2022-10-14] MEDS: Losartan 50 MG Tab PO SCH (08:06)
[2022-10-14 08:41] LABS: HEMATOCRIT 39.7 % (37.0-47.0); MEAN CORPUSCULAR HEMOGLOBIN 31.6 pg (27.0-32.0); MEAN CORPUSCULAR HGB CONC 32.7 g/dL (31.0-35.0); MEAN PLATELET VOLUME 9.7 fL (6.0-10.0); RED BLOOD CELL COUNT 4.12 M/uL (3.80-5.80); RED CELL DISTRIBUTION WIDTH 14.7 % (11.0-16.0); WHITE BLOOD CELL COUNT,WBC 7.1 K/uL (4.0-11.0)
[2022-10-14] MEDS: Insulin Glargine,Human Rec. Analog 100 Units/ML 3 ML Pen SUBCUT SCH (20:36)
[2022-10-15] MEDS: Insulin Aspart 100 Units/ML 3 ML Pen SUBCUT SCH (08:12)
[2022-10-15] MEDS: Losartan 50 MG Tab PO SCH (08:16)
[2022-10-15] MEDS: Sulfamethoxazole/Trimethoprim 800-160 MG Tab PO SCH (08:16)
[2022-10-15] MEDS: Rosuvastatin 20 MG Tab PO SCH (08:16)
[2022-10-15] MEDS: Omeprazole 20 MG Cap.CR PO SCH (08:16)
[2022-10-15] MEDS: Levothyroxine 100 MCG Tab PO SCH (08:16)
[2022-10-15] MEDS: Benztropine 0.5 MG Tab PO SCH (08:16)
[2022-10-15] MEDS: Furosemide 20 MG Tab PO SCH (08:17)
[2022-10-15] MEDS: Cholecalciferol (Vitamin D3) 2,000 Unit Cap PO SCH (08:17)
[2022-10-15] MEDS: Sertraline 50 MG Tab PO SCH (08:17)
== END 2022-10-15 11:15 | disposition home or self-care (01) | DRG 951 ==
LOC: LB.MS 15:38
PROVIDERS: ADMIT Surgery; ATTEND Surgery
DX: Z46.89 Encounter for fitting and adjustment of other specified devices (principal); M72.6 Necrotizing fasciitis; B95.62 Methicillin resistant Staphylococcus aureus infection as the cause of diseases classified elsewhere; B96.1 Klebsiella pneumoniae [K. pneumoniae] as the cause of diseases classified elsewhere; E78.00 Pure hypercholesterolemia, unspecified; I10 Essential (primary) hypertension; K21.9 Gastro-esophageal reflux disease without esophagitis; G35 Multiple sclerosis; F32.A Depression, unspecified; F17.200 Nicotine dependence, unspecified, uncomplicated; E11.9 Type 2 diabetes mellitus without complications; Z96.649 Presence of unspecified artificial hip joint; Z88.5 Allergy status to narcotic agent; Z88.0 Allergy status to penicillin; Z88.2 Allergy status to sulfonamides; Z79.4 Long term (current) use of insulin; Z79.890 Hormone replacement therapy; Z79.899 Other long term (current) drug therapy; Z90.49 Acquired absence of other specified parts of digestive tract
CPT/HCPCS: 36415; 80053; 82947; 85025; 85027; 86580; 87070; 97110-GO; 97161-GP; 97166-GO; 97530-GO; 97530-GP; 97535-GO; A9270-GY; J1170; J1815-GY; J2060; J3010

== ENCOUNTER 2022-10-20 22:30 | Emergency (ER) | payer MEDICARE | END 2022-10-20 23:25 | disposition home or self-care (01) | LOC: LB.ED 22:30 | DX: T85.698A Other mechanical complication of other specified internal prosthetic devices, implants and grafts, initial encounter (principal); E78.00 Pure hypercholesterolemia, unspecified; I10 Essential (primary) hypertension; K21.9 Gastro-esophageal reflux disease without esophagitis; E11.9 Type 2 diabetes mellitus without complications; E05.90 Thyrotoxicosis, unspecified without thyrotoxic crisis or storm; E66.9 Obesity, unspecified; Z68.30 Body mass index [BMI] 30.0-30.9, adult; Z88.5 Allergy status to narcotic agent; Z88.8 Allergy status to other drugs, medicaments and biological substances; Z88.0 Allergy status to penicillin; Z88.2 Allergy status to sulfonamides; Z79.899 Other long term (current) drug therapy; Z79.4 Long term (current) use of insulin | CPT/HCPCS: 99281; 99282 ==